=== PATIENT | female | born 1985 | race Caucasian/White ===

== ENCOUNTER → 2020-01-24 11:26 | Outpatient (BNVA) | payer MEDICAID, SELFPAY | PROVIDERS: PCP Internal Medicine; Visit Provider Surgery Vascular Surgery | DX: I83.12 Varicose veins of left lower extremity with inflammation (principal) | CPT/HCPCS: 99212 ==

== ENCOUNTER 2020-02-28 13:07 | Outpatient (REF) | payer MEDICAID, SELFPAY ==
--- NOTE | 2020-02-28 13:11 | US_ITS ---
EXAMINATION: RIGHT and LEFT LOWER EXTREMITY VENOUS ULTRASOUND (Reflux Exam) CLINICAL INDICATION: Varicose veins left lower extremity with inflammation. COMPARISON: None. TECHNIQUE: Color flow triplex imaging and compression Doppler was performed to evaluate both the deep and the superficial systems bilaterally. To evaluate the superficial system, the examination was performed in the upright position. Color-flow Doppler ultrasound and compression ultrasound were utilized. In addition, maneuvers were utilized to demonstrate reflux. FINDINGS: 1. DEEP VENOUS ULTRASOUND OF THE RIGHT LOWER EXTREMITY: Respiratory variation, normal compression and augmented flow are noted in the right common femoral vein as well as the right popliteal vein and there is no evidence of deep venous thrombosis at these locations. There is no evidence of reflux in the deep system in either the common femoral vein or the popliteal vein. There is no evidence of a Lopez's cyst. 2. SUPERFICIAL ULTRASOUND WITH DOPPLER OF RIGHT LOWER EXTREMITY: The right great saphenous vein at the saphenofemoral junction measures 7 mm, at the mid thigh 3 mm, [id number] 3 mm, [id number] 3 mm, at mid calf 2 mm and at the ankle measures 3 mm. There is no reflux demonstrated in the right great saphenous vein. The right small saphenous vein measures 2 mm and shows no reflux. There is a mid calf director [employer] measuring 3 mm in diameter. No reflux within it. 3. DEEP VENOUS ULTRASOUND OF THE LEFT LOWER EXTREMITY: Respiratory variation, normal compression and augmented flow are noted in the left common femoral vein as well as the left popliteal vein and there is no evidence of deep venous thrombosis at these locations. There is no evidence of reflux in the deep system in either the common femoral vein or the popliteal vein. . There is no evidence of a Lopez's cyst. 4. SUPERFICIAL ULTRASOUND WITH DOPPLER OF LEFT LOWER EXTREMITY: Left great saphenous vein at the saphenofemoral junction measures 8 mm, at the mid thigh 3 mm, [id number] to mm, [id number] 2 mm, at mid calf 2 mm and at the ankle measures 3 mm. There is no reflux demonstrated in the left great saphenous vein. The left small saphenous vein measures 3 mm and shows no reflux. Within the mid calf there is a 2 mm director marketing communications without reflux. Within the distal calf there is a 2 mm director marketing communications without reflux. US/US venous duplex LE BI IMPRESSION: 1. No evidence of reflux or thrombus in the common femoral veins or popliteal veins bilaterally. 2. The saphenous systems are competent bilaterally.
== END 2020-02-28 13:08 | disposition home or self-care (01) ==
LOC: HO.US 13:07
PROVIDERS: PCP Internal Medicine; Visit Provider Surgery Vascular Surgery
DX: I83.12 Varicose veins of left lower extremity with inflammation (principal)
CPT/HCPCS: 93970

== ENCOUNTER → 2020-03-22 15:19 | Outpatient (BNVA) | payer MEDICAID, SELFPAY | PROVIDERS: PCP Internal Medicine; Visit Provider Surgery Vascular Surgery | DX: I83.12 Varicose veins of left lower extremity with inflammation (principal) | CPT/HCPCS: 99212 ==

== ENCOUNTER 2023-10-22 11:05 | Outpatient (REF) | payer MEDICAID, SELFPAY ==
[2023-10-22 14:29] LABS: MANUAL DIFF FLAG NO
[2023-10-22 14:37] LABS: Basophils Percent Auto 0.4 % (0-2); Eosinophils Absolute Auto 0.1 X10*3/uL (0.0-0.4); Eosinophils Percent Auto 0.8 % (0-4); Hematocrit 36.2 % (37.0-47.0); Hemoglobin 11.7 g/dl (12.0-16.0); Imm Gran Abs Auto 0.02 X10*3/uL (0.00-0.03); Imm Gran Pct Auto 0.2 % (0.0-0.4); Lymphocytes Absolute Auto 1.7 X10*3/uL (1.2-4.9); Lymphocytes Percent Auto 19.2 % (20-40); Mean Corpuscular HGB Conc 32.3 g/dl (31.0-35.0); Mean Corpuscular Hemoglobin 26.8 pg (27.0-33.0); Mean Corpuscular Volume 82.8 fL (80.0-98.0); Mean Platelet Volume 11.7 fL (9.4-12.3); Monocytes Absolute Auto 0.5 X10*3/uL (0.1-1.2); Monocytes Percent Auto 5.9 % (2-11); Neutrophils Absolute Auto 6.6 x10*3/uL (2.0-8.3); Neutrophils Percent Auto 73.5 % (45-73); Platelet Count 321 X10*3/uL (160-400); Red Blood Count 4.37 X10*6/uL (4.20-5.50); Red Cell Distribution Width 14.8 % (11.0-16.0)
[2023-10-22 14:56] LABS: Estimated Average Glucose 100 mg/dL; Hemoglobin A1c % 5.1 % (<6.0)
[2023-10-22 15:11] LABS: Alanine Aminotransferase 30 U/L (0-31); Alkaline Phosphatase 99 U/L (39-117); Anion Gap 10 (12-20); Aspartate Amino Transferase 26 U/L (5-31); Bilirubin Total 0.5 mg/dL (0.0-1.0); Blood Urea Nitrogen 8 mg/dL (9-16); Calcium 9.6 mg/dL (8.4-10.2); Carbon Dioxide 25 mmol/L (22-29); Chloride 109 mmol/L (96-108); Cholesterol 117 mg/dL (<200); Estimated Glomerular Filt Rate > 60; Glucose Random 81 mg/dL (60-115); HDL Cholesterol 40 mg/dL (>40); Iron 41 mcg/dL (30-160); LDL Cholesterol Calculated 66 mg/dL (<100); Percent Iron Saturation 14 % (15-50); Sodium 140 mmol/L (135-145); Total Iron Binding Capacity 303 mcg/dL (228-428); Total Protein 7.7 g/dL (6.5-8.0); Triglycerides 59 mg/dL (<150); Unsaturated Iron Binding 262 ug/dL
[2023-10-22 15:14] LABS: TSH reflex Free T4 1.02 uIU/mL (0.32-4.0)
== END 2023-10-22 11:06 | disposition home or self-care (01) ==
LOC: HO.CHCLDS 11:05
PROVIDERS: Visit Provider Internal Medicine
DX: E66.01 Morbid (severe) obesity due to excess calories (principal); Z68.39 Body mass index [BMI] 39.0-39.9, adult
CPT/HCPCS: 36415; 80053; 80061; 83036; 83540; 84443; 85025

== ENCOUNTER 2023-11-10 14:44 | Outpatient (REF) | payer MEDICAID, SELFPAY ==
[2023-11-12 08:29] LABS: Trichomonas (NAAT) NOT DETECTED (NOT DETECTED)
[2023-11-12 08:33] LABS: C. trachomatis RNA TMA NOT DETECTED (NOT DETECTED); N. gonorrhoeae RNA TMA NOT DETECTED (NOT DETECTED)
[2023-12-09 08:10] LABS: Clinical Information NONE GIVEN; HPV mRNA E6/E7 Not Detected; Previous Biopsy Date NONE GIVEN; Thin Prep Source NONE GIVEN
== END 2023-11-10 14:45 | disposition home or self-care (01) ==
LOC: HO.CHCLNP 14:44
PROVIDERS: Visit Provider Family Medicine
DX: Z12.4 Encounter for screening for malignant neoplasm of cervix (principal)
CPT/HCPCS: 36415; 87491; 87591; 87624; 87661; 88175

== ENCOUNTER 2023-11-18 13:57 | Outpatient (REF) | payer MEDICAID, SELFPAY ==
--- NOTE | ~2023-11-18 | US_ITS ---
EXAMINATION: US PELVIS CLINICAL INFORMATION: Pelvic pain COMPARISON: None available. TECHNIQUE: Ultrasound of the pelvis is performed using both transabdominal and transvaginal transducers along with Doppler. Transvaginal imaging is performed due to inadequate visualization transabdominally. FINDINGS: Uterus: The uterus is anteverted and measures 8.63 x 4.7 x 6.1 cm. The double wall endometrial thickness is 0.53 mm. The uterus is smooth in contour and has normal myometrial echogenicity. No visible fibroid. Adnexa: Both ovaries are visualized. There is normal color flow to the adnexa. There is no ovarian torsion. There is no pelvic ascites or fluid collection. Right ovary measures 2.3 x 1.6 x 2.8 cm. Volume is 5.3 mL Left ovary measures 2.1 x 1.1 x 2.2 cm. Volume is 2.8 mL US/US pelvic and transvaginal IMPRESSION: Unremarkable pelvic ultrasound. Electronically signed by: Anderson Rios MD 11/26/2023 11:04 AM EDT
== END 2023-11-18 13:58 | disposition home or self-care (01) ==
LOC: HO.HMGCX 13:57
PROVIDERS: PCP Internal Medicine; Visit Provider Internal Medicine
DX: R10.2 Pelvic and perineal pain (principal)
CPT/HCPCS: 76830; 76856